=== PATIENT | male | born 1990 | race Caucasian/White ===

== ENCOUNTER 2018-04-04 13:35 | Outpatient (CLI) | payer OTHER ==
--- NOTE | 2018-04-04 15:40 | CT ---
CT ABDOMEN AND PELVIS WITHOUT IV CONTRAST: INDICATIONS: History of right-sided abdominal pain for several months and history of renal stones. COMPARISON: CT examination dated 11/27/2016. FINDINGS: The lung bases are clear. The unopacified liver, spleen, pancreas, and adrenal glands are normal appearing. There is a 3 mm an d a 2 mm stone within the mid pole of the right kidney. There is 2.4 mm stone within the mid to supe rior pole of the left kidney. No ureteral calculus or hydronephrosis is demonstrated. The visualize d unopacified bladder is unremarkable. There is a mild amount of retained stool within the colon. T here is a retrocecal appendix demonstrated. The appendix measures up to 8 mm, which is stable. No p eriappendiceal fat stranding or cecal apical wall thickening is evident. No free fluid is identified . No acute osseous abnormality is evident. IMPRESSION: 1. Bilateral nephrolithiasis. No ureteral calculus or hydronephrosis demonstrated. 2. Mild amount of retained stool within the colon. 3. Stable, mildly dilated appendix without secondary signs for acute appendicitis. POS: [facility]
== END 2018-04-04 13:36 | disposition home or self-care (01) ==
LOC: SCSCT 13:35
PROVIDERS: ATTEND Family Medicine
DX: N20.0 Calculus of kidney (principal); R19.5 Other fecal abnormalities
CPT/HCPCS: 74176

== ENCOUNTER 2020-09-03 10:30 | Emergency (ER) | payer BC ==
[2020-09-03] MEDS ORDERED: Morphine 4 MG/ML VIAL ONE (11:10)
[2020-09-03] MEDS ORDERED: Ondansetron PF 4 MG/2 ML Vial ONE (11:10)
[2020-09-03 11:29] LABS: #Lymphocytes 1.1 thou/uL (1.20-3.40); #Monocytes 0.6 thou/uL (0.11-0.59); #Neutrophils 8.5 thou/uL (1.40-6.50); %Basophils 0.4 % (0.0-1.0); %Eosinophils 0.2 % (0.0-10.0); %Lymphocytes 10.6 % (21.0-51.0); %Monocytes 5.8 % (0.0-10.0); Hemoglobin 16.8 g/dL (14.0-18.0); Mean Corpuscular HGB CONC 31.8 g/dL (32.0-36.0); Mean Corpuscular Hemoglobin 27.1 pg (27.0-31.0); Mean Corpuscular Volume 85.2 fL (78.0-98.0); Mean Platelet Volume 8.4 fL (7.4-10.4); Platelet Count 265 thou/uL (130-400); RBC Distribution Width 11.9 % (11.5-14.5); Red Blood Cell (RBC) Count 6.18 mill/uL (4.70-6.10); White Blood Cell (WBC) Count 10.2 thou/uL (4.8-10.8)
--- NOTE | 2020-09-03 11:47 | CT ---
CT Abdomen Pelvis W Con HISTORY: Abdominal pain COMPARISON: CT Stone protocol dated 04/04/2018 FINDINGS: The lung bases are clear. The liver, spleen, pancreas, left kidney and adrenal glands are normal. No calcified gallstones are seen. There are cysts in the right kidney. There is a right-sided hydroureteronephrosis due to a 3 mm calculus in the right ureter at L4 level. No free air, free fluid or lymphadenopathy seen in the abdomen or pelvis. The aorta is of normal chelita tod. The small bowel loops are not abnormally dilated. Appendix is normal. There are mild degenerative changes in the spine. IMPRESSION: 3 mm right ureteral calculus at L4 level causing hydroureteronephrosis.
[2020-09-03 12:04] LABS: ALT (SGPT) 27 U/L (8-55); AST (SGOT) 19 U/L (5-34); Albumin 5.1 g/dL (3.5-5.0); Alkaline Phosphatase 96 U/L (40-110); Anion Gap 14 mmol/L (10-20); BUN (Urea Nitrogen) 18 mg/dL (8.9-20.6); Bilirubin, Total 0.7 mg/dL (0.2-1.2); Calc. Creatinine Clearance 0 mL/min (70-130); Calcium 10.2 mg/dL (7.8-10.44); Carbon Dioxide 28 mmol/L (22-29); Chloride 103 mmol/L (98-107); Estimated GFR-MDRD 57; Globulin 3.2 g/dL (2.4-3.5); Glucose 134 mg/dL (70-105); Potassium 3.8 mmol/L (3.5-5.1); Protein, Total 8.3 g/dL (6.0-8.3); Sodium 141 mmol/L (136-145)
[2020-09-03] MEDS ORDERED: Ketorolac Tromethamine 30 MG/ML VIAL ONE (12:58)
[2020-09-03] MEDS ORDERED: Iopamidol-370 76% 500 ML 1 ML ONE (12:59)
[2020-09-03 13:14] LABS: Bacteria/HPF None Seen HPF (None Seen); Bilirubin Negative (Negative); Blood, Urine 2+ (Negative); Clarity Clear (Clear); Glucose, Urine (Dipstick) Normal (Negative); Ketone, Urine Negative (Negative); Leukocyte Negative Leu/uL (Negative); Nitrite Negative (Negative); Protein, Urine (Dipstick) 10 mg/dL (Neg-Trace); RBC/HPF Greater than 50 HPF (0-3); Squamous Epithelial None Seen HPF (0-3); Urobilinogen Normal mg/dL (Less than 2); pH, Urine 7.5 (5.0-9.0)
[2020-09-03 13:19] LABS: Specific Gravity, Urine 1.056 (1.002-1.036)
== END 2020-09-03 13:56 | disposition home or self-care (01) ==
LOC: ERS 10:30
DX: N13.2 Hydronephrosis with renal and ureteral calculous obstruction (principal); F17.290 Nicotine dependence, other tobacco product, uncomplicated
CPT/HCPCS: 36415; 74177; 80053; 81003; 81015; 85025; 96374; 96375; J1885; J2270; J2405; Q9967

== ENCOUNTER 2020-12-06 10:45 | Outpatient (CLI) | payer BC ==
--- NOTE | 2020-12-06 12:43 | ULT ---
ULTRASOUND RETROPERITONEUM COMPLETE: (RENAL) DATE: 12/06/2020 HISTORY: 30-year-old male with calculus of kidney, nephrolithiasis FINDINGS: Right kidney: 11.5 x 5.5 x 5.5 cm. Left kidney: 11 x 4.5 x 5.5 cm. No hydronephrosis bilaterally. Small hyperechoic focus at mid pole of left kidney, probably a small calculus. Additional tiny echogenic foci at upper and lower poles of bilateral kidneys may or may not represent calculi. Prevoid bladder volume 380 mL, with normal appearance of bladder. Post void bladder volume 2 mL. IMPRESSION: 1) no hydronephrosis. 2) questionable nephrolithiasis, with probable small left renal calculus and questionable additional tiny bilateral calculi, which would be better visualized with noncontrast CT.
== END 2020-12-06 10:46 | disposition home or self-care (01) ==
LOC: BICULT 10:45
PROVIDERS: ATTEND Urology
DX: N20.0 Calculus of kidney (principal)
CPT/HCPCS: 76770